=== PATIENT | female | born 1990 | race Caucasian/White ===

== ENCOUNTER 2024-06-13 13:29 | Outpatient (CLI) | payer BC, SELFPAY | END 2024-06-13 13:30 | disposition home or self-care (01) | PROVIDERS: Visit Provider Physician Assistant | DX: Z34.83 Encounter for supervision of other normal pregnancy, third trimester (principal); Z67.10 Type A blood, Rh positive | CPT/HCPCS: 86592; 86850; 86900; 86901 ==

== ENCOUNTER 2024-06-16 10:01 | Outpatient (CLI) | payer BC, SELFPAY ==
--- NOTE | 2024-06-16 10:45 | CRLHL7_ITS ---
For Patients: As a result of the Century Cures Act, medical imaging exams and procedure reports are released immediately into your electronic medical record. You may view this report before your referring provider. If you have questions, please contact your health care provider. OB ULTRASOUND FOLLOWUP LIMITED, 06/16/2024 CLINICAL HISTORY: GDMA2. COMPARISON: None; outside facility. TECHNIQUE: Real time boswell scale imaging of the fetus was performed transabdominally. FINDINGS: Gestation: Single. VELIA by LMP/US: 09/03/2024. GA: 28 weeks 5 days. CERVIX: Not visualized. POSITIONING: Breech. AMNIOTIC FLUID: 5.0 cm SDP. PLACENTA: Technique: TA. Placenta Position: Posterior. DOPPLERS: Heart Rate: 152 bpm. BIOMETRY: BPD: 7.0 cm, 28 weeks 2 days. 24.3% HC: 27.5 cm, 30 weeks 0 days. 56.5% AC: 26.7 cm, 30 weeks 6 days. 93.6% FL: 5.6 cm, 29 weeks 3 days. 54.2% FL/AC Ratio: 20.87% HC/AC Ratio: 1.03. EFW: 1509 grams, 3 lb 5 oz. Age by this US: 29 weeks 5 days. VELIA by this US: 08/27/2024. Percentile by VELIA: 85.6% IMPRESSION: 1. Sonographic gestational age 29 weeks 5 days and sonographic due date 08/27/2024. Sonographic age one week ahead of the clinical age. 2. Estimated weight 86th percentile. Abdominal circumference 94th percentile. Darion Pritchard M.D. Diagnostic Radiologist [email or web address] Transcribed: 12:20 pm DW/Dictated by: Darion Pritchard MD @ 06/16/2024 11:44:00 AM (Electronically Signed)
== END 2024-06-16 10:02 | disposition home or self-care (01) ==
LOC: US 10:02
PROVIDERS: Visit Provider Physician Assistant
DX: O24.419 Gestational diabetes mellitus in pregnancy, unspecified control (principal); Z3A.29 29 weeks gestation of pregnancy
CPT/HCPCS: 76816

== ENCOUNTER 2024-07-11 12:04 | Outpatient (CLI) | payer BC, SELFPAY ==
--- NOTE | 2024-07-11 12:15 | CRLHL7_ITS ---
For Patients: As a result of the Century Cures Act, medical imaging exams and procedure reports are released immediately into your electronic medical record. You may view this report before your referring provider. If you have questions, please contact your health care provider. OB ULTRASOUND VELIA by US: 09/03/2024. GA: 32 w, 2 d. Single. Comparison: 06/16/2024. INDICATION: GDM. TECHNIQUE: Real time grayscale imaging of the fetus was performed. Transabdominal. CERVIX: Not visualized. POSITIONING: Breech. AMNIOTIC FLUID: 5.7 cm. SDP (N: greater than 2 x 1 cm) BIOPHYSICAL PROFILE: 2: Gross body movements 2: tone 2: Respiratory activity 2: Amniotic fluid SDP (N: greater than 2 x 1 cm) 11/03: Total score PLACENTA: Technique: Transabdominal. PLACENTA POSITION: Posterior. DOPPLER: heart rate: 154 bpm. BIOMETRY: BPD: 7.9 cm. 31 w, 4 d, 20 percent. HC: 29.7 cm. 32 w, 6 d, 27 percent. AC: 30.1 cm. 34 w, 0 d, 91 percent. FL: 6.6 cm. 33 w, 6 d, 79 percent. FL/AC ratio: 21.86 percent. HC/AC ratio: 0.99. EFW: 2233 g. Weight: 4 lbs, 15 oz. age by this US: 33 w, 1 d. VELIA by this US: 08/28/2024. Percentile by VELIA: 81st percent. IMPRESSION: 1. Sonographic gestational age 33 weeks 1 day and sonographic due date 08/28/2024. Sonographic age 6 days ahead of the clinical age. 2. Estimated weight 81st percentile. Abdominal circumference 91st percentile. 3. Normal biophysical profile score 11/03. Darion Pritchard M.D. Diagnostic Radiologist [email or web address] [email or web address]/[email or web address] vaz/Dictated by: Darion Pritchard MD @ 07/11/2024 3:23:00 PM (Electronically Signed)
== END 2024-07-11 12:05 | disposition home or self-care (01) ==
LOC: US 12:04
PROVIDERS: Visit Provider Physician Assistant
DX: O24.419 Gestational diabetes mellitus in pregnancy, unspecified control (principal); O36.63X0 Maternal care for excessive fetal growth, third trimester, not applicable or unspecified; Z3A.32 32 weeks gestation of pregnancy
CPT/HCPCS: 76816; 76819

== ENCOUNTER 2024-07-18 11:51 | Outpatient (CLI) | payer BC, SELFPAY ==
--- NOTE | 2024-07-18 12:15 | CRLHL7_ITS ---
For Patients: As a result of the Cures Act, medical imaging exams and procedure reports are released immediately into your electronic medical record. You may view this report before your referring provider. If you have questions, please contact your health care provider. CORRECTION: The heart rate is 142 bpm. CRL/bhm OB ULTRASOUND BIOPHYSICAL PROFILE, 07/18/2024 CLINICAL HISTORY: Gestational diabetes mellitus. COMPARISON: 07/11/2024, 06/16/2024. TECHNIQUE: Real time boswell-scale imaging of the fetus was performed transabdominally. FINDINGS: Gestation: Single. VELIA by LMP/US: 09/03/2024. GA: 33 weeks 2 days. CERVIX: Not visualized. POSITIONING: Breech. AMNIOTIC FLUID: 6.0 cm, SDP. BIOPHYSICAL PROFILE: Gross body movements: 2 Tone: 2 Respiratory Activity: 2 Amniotic Fluid; 2 Total Score: 8/8 PLACENTA: Technique: TA. Placenta position: Fundal. DOPPLERS: Heart Rate: 42 bpm. IMPRESSION: Normal biophysical profile score of 8/8. Darion Pritchard M.D. Diagnostic Radiologist [email or web address] Transcribed: 1:00 pm DW/Dictated by: Darion Pritchard MD @ 07/18/2024 12:23:00 PM Signed by: Darion Pritchard @ 07/18/2024 1:27:49 PM (Electronic Signature) (Electronically Signed)
== END 2024-07-18 11:52 | disposition home or self-care (01) ==
LOC: US 11:51
PROVIDERS: Visit Provider Physician Assistant
DX: O24.419 Gestational diabetes mellitus in pregnancy, unspecified control (principal); Z3A.33 33 weeks gestation of pregnancy
CPT/HCPCS: 76819

== ENCOUNTER 2024-07-25 08:53 | Outpatient (CLI) | payer BC, SELFPAY ==
--- NOTE | 2024-07-25 09:15 | CRLHL7_ITS ---
For Patients: As a result of the Century Cures Act, medical imaging exams and procedure reports are released immediately into your electronic medical record. You may view this report before your referring provider. If you have questions, please contact your health care provider. INDICATION: GDMA2 COMPARISON: 07/19/2024 TECHNIQUE: Real time boswell scale imaging of the fetus was performed. Without non-stress testing. FINDINGS: Sonographic imaging demonstrates a single living intrauterine gestation. Fetus demonstrates a regular cardiac rate of 147 beats per minute. Fetus has a sera breech position. The fetus was active and demonstrated normal breathing movements. There was normal flexion and extension of the trunk and extremities. Amniotic fluid single deepest pocket 11.7 cm. GAVINO 30.2 cm. IMPRESSION: Normal biophysical profile score of 8 out of 8. SDP 11.7 cm. GAVINO 30.2 cm. Dictated by Darion Pritchard MD @ 07/25/2024 1:12:49 PM (Electronically Signed)
== END 2024-07-25 08:54 | disposition home or self-care (01) ==
LOC: US 08:54
PROVIDERS: Visit Provider Physician Assistant
DX: O24.419 Gestational diabetes mellitus in pregnancy, unspecified control (principal)
CPT/HCPCS: 76819

== ENCOUNTER 2024-08-01 08:49 | Outpatient (CLI) | payer MEDICAID, SELFPAY ==
--- NOTE | 2024-08-01 09:15 | CRLHL7_ITS ---
For Patients: As a result of the Century Cures Act, medical imaging exams and procedure reports are released immediately into your electronic medical record. You may view this report before your referring provider. If you have questions, please contact your health care provider. OB ULTRASOUND BIOPHYSICAL PROFILE VELIA by US: 09/03/2024. GA: 35 w, 2 d. INDICATION: GDM. TECHNIQUE: Real time bosewll scale imaging of the fetus was performed. Transabdominal imaging performed. CERVIX: Not visualized. POSITIONING: Breech. AMNIOTIC FLUID: 27.8 cm. 10.1 cm on SDP (N: greater than 2 x 1 cm). BIOPHYSICAL PROFILE: Gross body movements: 2. tone: 2. Respiratory activity: 2. Amniotic fluid: 2. (SDP N: greater than 2 x 1 cm) Total score: 8. PLACENTA: Technique: Transabdominal. PLACENTA POSITION: Posterior. DOPPLER: heart rate: 137 bpm. IMPRESSION: 1. 8/8 biophysical profile score. 2. Amniotic fluid single deepest pocket 10.1 cm. GAVINO 27.8 cm. Darion Pritchard M.D. Diagnostic Radiologist [email or web address] HONG/Dictated by: Darion Pritchard MD @ 08/01/2024 8:05:00 PM HONG/Dictated by: Darion Pritchard MD @ 08/01/2024 8:05:00 PM (Electronically Signed)
== END 2024-08-01 08:50 | disposition home or self-care (01) ==
LOC: US 08:50
PROVIDERS: Visit Provider Physician Assistant
DX: O24.419 Gestational diabetes mellitus in pregnancy, unspecified control (principal); Z3A.35 35 weeks gestation of pregnancy
CPT/HCPCS: 76819; 87081; 87653

== ENCOUNTER 2024-08-01 10:30 | Outpatient (CLI) | payer MEDICAID, SELFPAY | END 2024-08-01 10:31 | disposition home or self-care (01) | LOC: NFLDREF 08-04 01:48 | PROVIDERS: Visit Provider Obstetrics & Gynecology | DX: Z34.83 Encounter for supervision of other normal pregnancy, third trimester (principal) | CPT/HCPCS: 87081; 87653 ==

== ENCOUNTER 2024-08-05 14:50 | Outpatient (CLI) | payer MEDICAID, SELFPAY ==
[2024-08-05 14:57] VITALS: PULSE 111; O2SAT 99
[2024-08-05 14:58] VITALS: BP 138/64; PULSE 106
[2024-08-05 15:16] VITALS: RESP 18; TEMP 36.6
[2024-08-05 15:34] LABS: Amnisure Rom* Negative
[2024-08-05 15:41] LABS: Clue Cells >20% Clue Cells Seen (None Seen); Trichomonas No Trichomonas Seen (None Seen); Yeast Yeast Seen (None Seen)
[2024-08-05 15:55] LABS: Appearance Urine Slightly Cloudy (Clear); Bilirubin Urine Negative (Negative); Color Urine Yellow (Yellow); Glucose Urine 2+ (Negative); Ketones Urine Trace (Negative)
[2024-08-05 15:56] LABS: Blood Urine 1+ (Negative)
[2024-08-05 15:57] LABS: Leukocyte Esterase Urine Trace (Negative); Nitrite Urine Negative (Negative); Protein Urine Trace (Negative); Urobilinogen Urine 0.2 (0.2-1.0); pH Urine 6.5 (5.0-8.5)
[2024-08-05 15:58] LABS: Bacteria Urine Few; Squamous Epithelial Cell Urine Few (None-Few)
--- NOTE | 2024-08-05 16:13 | PC.OBNST ---
NST Note NST Note Start: 08/05/24 14:53 Freq: ONCE Status: Active Protocol: Document 08/05/24 14:53 [facility] (Rec: 08/05/24 16:13 [facility] No Response) NST Note 4 Para (# of births) 2 EDC 09/03/24 Gestational Age In Weeks & Days 35 Weeks & 6 Days High Risk Factors Diabetes - Preexisting Type I Insulin Patient Presented with Complaint(s) of Contractions/cramping,Leaking fluid Other Complaints amnisure negative, BV and yeast positive Reactive Yes Appropriate for Gestational Age Yes RN Case RN Date 08/05/24 Reactive Yes Appropriate for Gestational Age Yes RN Reiley RN Date 08/05/24 OB NST charge Yes Complete NST Note via Write Note Yes The provider's electronic signature indicates the NST is reactive/appropriate for gestational age. *Note to provider: If an addendum is required, open the patient's chart and click on the note under the Nurse/Allied Health tab.
== END 2024-08-05 16:15 | disposition home or self-care (01) ==
LOC: OB OUT 14:51 → OB 14:52
PROVIDERS: Visit Provider Obstetrics & Gynecology
DX: O24.013 Pre-existing type 1 diabetes mellitus, in pregnancy, third trimester (principal); O47.03 False labor before 37 completed weeks of gestation, third trimester; O23.593 Infection of other part of genital tract in pregnancy, third trimester; B96.89 Other specified bacterial agents as the cause of diseases classified elsewhere; Z3A.35 35 weeks gestation of pregnancy
CPT/HCPCS: 59025; 81001; 81003; 84112; 87086; 87210; G0463

== ENCOUNTER 2024-08-08 09:54 | Outpatient (CLI) | payer MEDICAID, SELFPAY ==
--- NOTE | 2024-08-08 10:00 | CRLHL7_ITS ---
For Patients: As a result of the Century Cures Act, medical imaging exams and procedure reports are released immediately into your electronic medical record. You may view this report before your referring provider. If you have questions, please contact your health care provider. OB ULTRASOUND VELIA by LMP OR US: 09/03/2024. GA: 36 w, 2 d. Single. Comparison: 08/01/2024, 07/25/2024, 07/18/2024, 07/11/2024. INDICATION: GDM. TECHNIQUE: Real time boswell scale imaging of the fetus was performed. Transabdominal. CERVIX: Not visualized. POSITIONING: Breech. AMNIOTIC FLUID: 28.7 cm. 9.6 cm SDP (N: greater than 2 x 1 cm) BIOPHYSICAL PROFILE: Total score: 2. Gross body movements: 2. tone: 0. Respiratory activity: 2. Amniotic fluid: 6. (SDP N: greater than 2 x 1 cm) PLACENTA: Technique: Transabdominal. PLACENTA POSITION: Posterior. DOPPLER: heart rate: 144 bpm. BIOMETRY: BPD: 8.9 cm. 36 w, 1 d, 56 percent. HC: 33.9 cm. 38 w, 6 d, 82 percent. AC: 37.7 cm. 41 w, 4 d, >97 percent. FL: 7.2 cm. 37 w, 0 d, 67 percent. FL/AC ratio: 19.22 percent. HC/AC ratio: 0.90. EFW: 3851 g. Weight: 8 lbs, 8 oz. age by this US: 38 w, 3 d. VELIA by this US: 08/19/2024. Percentile by VELIA: >97 percent. 1. IMPRESSION: Sonographic gestational age 38 weeks 3 days and sonographic due date 08/19/2024. Sonographic age is 15 days ahead of the clinical age. 2. Estimated weight greater than 97th percentile. Abdominal circumference greater than 97th percentile. 3. Biophysical profile 09/03. Absent respiratory activity. 4. Amniotic fluid single deepest pocket 9.6 cm. GAVINO 28.7 cm. Darion Pritchard M.D. Diagnostic Radiologist [email or web address] [email or web address]/[email or web address] JR/Dictated by: Darion Pritchard MD @ 08/08/2024 10:56:00 AM (Electronically Signed)
== END 2024-08-08 09:55 | disposition home or self-care (01) ==
LOC: US 09:54
PROVIDERS: Visit Provider Physician Assistant
DX: O24.419 Gestational diabetes mellitus in pregnancy, unspecified control (principal); O36.63X0 Maternal care for excessive fetal growth, third trimester, not applicable or unspecified; Z3A.36 36 weeks gestation of pregnancy
CPT/HCPCS: 76816; 76819

== ENCOUNTER 2024-08-11 11:17 | Outpatient (CLI) | payer MEDICAID, SELFPAY ==
[2024-08-11 11:37] VITALS: BP 123/69; PULSE 88
[2024-08-11 12:07] VITALS: PULSE 84; O2SAT 99
[2024-08-11] MEDS: LACTATED RINGERS 500 ML 500 ML 1000 ML IV (13:23)
--- NOTE | 2024-08-13 15:26 | PC.OBNST ---
NST Note NST Note Start: 08/11/24 11:27 Freq: ONCE Status: Discharge Protocol: Document 08/11/24 14:00 [facility] (Rec: 08/13/24 15:26 [facility] [id number]) NST Note 4 Para (# of births) 2 EDC 09/03/24 Gestational Age In Weeks & Days 37 Weeks & 0 Days High Risk Factors Diabetes - Gestational Insulin Patient Presented with Complaint(s) of Contractions/cramping,Other Other Complaints Extended NST monitoring from clinic; rule out labor Reactive Yes Appropriate for Gestational Age Yes MONSTER Palacios, RN Date 08/11/24 Reactive Yes Appropriate for Gestational Age Yes MONSTER Chowdhury, MONSTER Date 08/11/24 OB NST charge Yes Complete NST Note via Write Note Yes The provider's electronic signature indicates the NST is reactive/appropriate for gestational age. *Note to provider: If an addendum is required, open the patient's chart and click on the note under the Nurse/Allied Health tab.
== END 2024-08-11 14:20 | disposition home or self-care (01) ==
LOC: OB OUT 11:18 → OB 11:20
PROVIDERS: Visit Provider Obstetrics & Gynecology
DX: O24.419 Gestational diabetes mellitus in pregnancy, unspecified control (principal); O47.1 False labor at or after 37 completed weeks of gestation; Z3A.37 37 weeks gestation of pregnancy
CPT/HCPCS: 59025; G0463; J7120

== ENCOUNTER 2024-08-14 05:40 | Inpatient (IN) | payer MEDICAID, SELFPAY ==
[2024-08-14] VITALS (28 sets, daily range): BP systolic 96–122; BP diastolic 57–77; PULSE 61–101; RESP 16–20; TEMP 36.2–36.7; O2SAT 96–100; BMI 40.8
[2024-08-14] MEDS: LACTATED RINGERS 1000 ML 1,000 ML 1100 ML IV (06:34)
[2024-08-14 06:40] LABS: Basophils Absolute Auto 0.02 K/uL (0.00-0.30); Basophils Percent Auto 0.2 % (0.0-3.0); Eosinophils Absolute Auto 0.04 K/uL (0.00-0.50); Eosinophils Percent Auto 0.4 % (0.0-7.0); Hematocrit 32.8 % (33.0-51.0); Hemoglobin* 10.6 gm/dL (12.0-16.0); Immature Granulocytes Abs Auto 0.02 K/uL (0.00-0.30); Immature Granulocytes Pct Auto 0.2 %; Lymphocytes Percent Auto 17.2 % (20-44); Mean Corpuscular HGB Conc 32 gm/dL (32-36); Mean Corpuscular Hemoglobin 27 pg (26-34); Mean Corpuscular Volume 83 fL (80-100); Monocytes Percent Auto 5.2 % (0.0-11.0); Neutrophils Percent Auto 76.8 % (42.0-72.0); Platelet Count* 194 K/uL (140-440); RDW Coefficient of Variation % 13.8 % (11.5-15.5); Red Blood Count 3.96 m/uL (4.00-5.20); White Blood Count* 9.76 K/uL (4.50-11.00)
[2024-08-14 06:47] LABS: Slide Review Reflex No
[2024-08-14] MEDS: CEFAZOLIN 1 GM inj 3 GM IVP (07:25)
--- NOTE | 2024-08-14 08:59 | P.ANES_ITS ---
Anesthesia Charges Start Date/Time Anesthesia Start Date: 08/14/24 Anesthesia Start Time: 07:21 Stop Date/Time Anesthesia Stop Date: 08/14/24 Anesthesia Stop Time: 08:56 Coding CPT Codes CPT Codes: ANESTH CS DELIVERY - 42087 ([id number]) P3 - PATIENT W/SEVERE SYS DISEASE, QK - MATERIAL HAULER 2-4 CNCRNT ANES PROC, QX - OLDER WORKER SPECIALIST SVC W/ MD MED DIRECTION
--- NOTE | 2024-08-14 08:59 | P.NB_ITS ---
Nerve Block Nerve Block Time Seen by Provider: 08:45 Date Seen: 08/14/24 Type of block requested by surgeon for post-operative analgesia: TAP Side: bilateral Time out performed: Yes Verification of patient name: Yes Verification of date of : Yes Site marking: site marked Name of person performing procedure: Abhi Continuous monitoring Was continuous monitoring of O2 sat, B/P, rn cardiac rehab, recorded every 15 minutes?: Yes Procedure Checklist: sterile prep, needles and gloves Ultrasound guided. Images saved: Yes Medications given in 5ml increments after negative aspiration: Marcaine %: 0.25 mL: 30 Needle gauge: 20 and Exparel mL: 10 Patient tolerated procedure well: Yes Additional comments: Needle noted between internal oblique and transversus abdominus. Local spread visualized Block Charges Block Charge (with Pro Fee): TAP Bilateral Use of Ultrasound Machine for Block: Yes- US Guidance/pain block
--- NOTE | 2024-08-14 08:59 | W.ANESCHARGE ---
Anesthesia Charges Start Date/Time Anesthesia Start Date: 08/14/24 Anesthesia Start Time: 07:21 Stop Date/Time Anesthesia Stop Date: 08/14/24 Anesthesia Stop Time: 08:56 Coding CPT Codes CPT Codes: ANESTH CS DELIVERY - 64635 ([id number]) P3 - PATIENT W/SEVERE SYS DISEASE, QK - COACH DRIVER 2-4 CNCRNT ANES PROC, QX - INSTRUMENT OPERATOR SVC W/ MD MED DIRECTION
--- NOTE | 2024-08-14 09:02 | P.ANES_ITS ---
Anesthesia Charges Start Date/Time Anesthesia Start Date: 08/14/24 Anesthesia Start Time: 07:21 Stop Date/Time Anesthesia Stop Date: 08/14/24 Anesthesia Stop Time: 08:56 Coding CPT Codes CPT Codes: ANESTH CS DELIVERY - 53127 ([id number]) P3 - PATIENT W/SEVERE SYS DISEASE, QK - DISBURSEMENT CLERK 2-4 CNCRNT ANES PROC, QX - MORTGAGE SERVICING SPECIALIST SVC W/ MD MED DIRECTION
--- NOTE | 2024-08-14 09:02 | W.ANESCHARGE ---
Anesthesia Charges Start Date/Time Anesthesia Start Date: 08/14/24 Anesthesia Start Time: 07:21 Stop Date/Time Anesthesia Stop Date: 08/14/24 Anesthesia Stop Time: 08:56 Coding CPT Codes CPT Codes: ANESTH CS DELIVERY - 79214 ([id number]) P3 - PATIENT W/SEVERE SYS DISEASE, QK - IT APPLICATION DEVELOPMENT MANAGER 2-4 CNCRNT ANES PROC, QX - SET UP MECHANIC COATING MACHINES SVC W/ MD MED DIRECTION
--- NOTE | 2024-08-14 09:14 | P.OBPRC_ITS ---
Procedure Date of procedure: 08/14/24 Pre-op diagnosis: 1. 37 1/7 weeks gestation. 2. Uncontrolled GDMA2. 3. Breech presentation. 4. macrosomia. 5. Polyhydramnios. 6. Undesired fertility. Post-op diagnosis: same Procedure Done: Global Will [facility] bill your pro fee for this procedure?: Yes Blood Loss Measurement Type: QBL (265 mL) Bakri Used: No IV fluids (mL): 2,000 Urine Output (mL): 100 Surgeon: Sangeetha Young MD Project Management Consultant: Rhonda Jolly Anesthesia Type: Spinal and TAP Block Findings: Live-born female , sera breech presentation. Weight 10 lb 8 oz. Apgars 5, 8, and 8, at 1, 5, and 10 minutes respectively. Polyhydramnios, with 2.5 L of clear amniotic fluid. Normal-appearing uterus, ovaries, and fallopian tubes. Procedure Name: Primary low transverse section with bilateral salpingectomies. Procedure Description: After obtaining informed consent, the patient was taken to the operating room where spinal anesthesia was obtained and found to be adequate. She was prepared and draped in the normal sterile fashion in the dorsal supine position with a leftward tilt. A Pfannenstiel skin incision was made with a scalpel. This incision was carried down to the underlying layer of fascia. The fascia was incised in the midline and the incision extended laterally. The mitchell perior and inferior aspects of the fascial incision were grasped with Dary clamps, elevated and the underlying rectus muscles dissected off sharply and with electrocautery. The rectus muscles were then in the midline. The Faustino O retractor was then placed into the incision. The lower uterine segment was then incised in a transverse fashion with the scalpel. Upon entry into the uterus, copious clear amniotic fluid was noted. The uterine incision was extended laterally with blunt finger fractionation. The infant's breech was delivered atraumatically, back was rotated upwards, the legs were delivered followed by the remainder of the torso, and then the arms. The head was delivered while maintaining neck flexion. The nose and mouth were suctioned with the bulb suction. The cord was doubly clamped and cut after 30 second delay, and the infant was handed off the field to the pediatric acute care unit nurse for evaluation. The placenta was delivered spontaneously with umbilical cord traction and fundal massage. Pitocin was administered intravenously as well as tranexamic acid 1000 mg to help with uterine tone. The uterus was cleared of all clots and debris. The uterine incision was reapproximated in a running locking fashion with a 0 chromic suture. A 2nd layer of the same suture was used to imbricate in horizontal fashion. One additional figure of X suture of 0 chromic was needed in the midline for hemostasis. The uterus was then exteriorized. Attention was turned to the left fallopian tube, which was followed to its fimbrial end and elevated using Evelia clamps. The hand-held LigaSure device was then used to dissect the tube from its cornual, broad ligament, and ovarian attachments. There was a little bit of bleeding noted at the ovary where the fimbrial attachments had been. This was controlled with electrocautery. Attention was turned to the right fallopian tube, which was also followed to its fimbrial end and elevated with Evelia clamps. The hand-held LigaSure device was used to dissect this tube from the cornual, broad ligament and ovarian attachments. Excellent hemostasis was observed. As a precautionary measure, Candi was placed over the raw tissue surfaces. All instruments and retractors were removed. The anterior peritoneum was reapproximated in a running fashion with a 3-0 Vicryl suture. The subfascial tissues were carefully inspected and hemostasis assured. The fascia was reapproximated in a running fashion with a looped 0 Maxon suture. The subcutaneous tissues were copiously irrigated. Hemostasis was assured. The subcutaneous fat layer was reapproximated with interrupted sutures of 3-0 plain gut. The skin was closed in a subcuticular fashion with 4-0 Vicryl. A silver Mepilex dressing was applied over the incision. A tap block was administered by anesthesia. The patient tolerated the procedure well. Sponge, lap, needle, and instrument counts were reported as correct x2. The patient was taken to the recovery room, awake, and in stable condition. She did receive 3 grams of IV Ancef preoperatively. Complications: None. Pathology: specimen obtained, sent to pathology (Placenta) Surgery Debrief Performed: Yes Condition: stable Disposition: floor
--- NOTE | 2024-08-14 09:14 | W.PM.H&PU ---
History & Physical Update History & Physical Update H&P Reviewed and patient assessed: No changes noted H&P Updates: Blood sugar 119 this morning.
[2024-08-14] MEDS: diphenhydrAMINE 50 MG/ML inj 12.5 MG IVP ×3 (09:35→20:23)
[2024-08-14] MEDS: KETOROLAC 30 MG/ML inj IVP ×2 (14:29→20:22)
[2024-08-15 00:32] VITALS: BP 99/65; PULSE 86; RESP 16; TEMP 36.6; O2SAT 97
[2024-08-15] MEDS: KETOROLAC 30 MG/ML inj IVP ×3 (02:20→14:26)
[2024-08-15 05:34] VITALS: BP 106/67; PULSE 96; RESP 16; TEMP 36.4; O2SAT 97
[2024-08-15] MEDS: ACETAMINOPHEN 500 MG TABLET 1000 MG PO ×3 (05:40→18:20)
[2024-08-15 06:16] LABS: Hemoglobin* 8.9 gm/dL (12.0-16.0)
--- NOTE | 2024-08-15 08:23 | P.OBPN_ITS ---
OB - PN:Subj Subjective Date Seen: 08/15/24 Narrative: Rimma is a 33 year old who was admitted for scheduled for sera breech and severe polyhydramnios. It is noted that she has poor control of GDMA2. Baby was transferred to [facility] for higher medical needs, but agars were . The patient feels well.? The pain is well controlled with current medications.? She has no new complaints.? Urinary output is adequate and she is voiding without difficulty.? Has a good appetite, is tolerating a general diet, is passing flatus, and has not had a bowel movement.? Has scant amount of rubra lochia.? She is ambulating well. She is pumping and reports it is going well.? OB - PN: Obj Exam Physical Exam: Vital signs: Temp Pulse Resp BP Pulse Ox O2 Del Method 97.6 F 96 16 106/67 97 Room Air 08/15/24 05:34 08/15/24 05:34 08/15/24 05:34 08/15/24 05:34 08/15/24 05:34 08/15/24 05:34 Narrative: GENERAL APPEARANCE:? normal affect, alert, no distress MOOD:? appropriate CHEST:? clear to auscultation HEART:? regular rate and rhythm ABDOMEN:? soft, non-tender the uterine fundus is At Umbilicus, Midline and is appropriate for the stage of recovery. EXTREMITIES:? normal and minimal edema Incision: Silvadene dressing intact with no surrounding erythema, abnormal induration or discharge. No drainage on dressing OB - PN: Obj Data Labs Labs: Laboratory Results - last 24 hr 08/15/24 05:59 Hgb 8.9 L OB - PN: A/P Delivery Assessment and Plan (1) care and examination of lactating mother: Status: Acute (2) Status post delivery: Problem details: Breech, severe polyhydramnios Status: Acute (3) GDM, class A2: Status: Acute Plan Comments: PP day #1 Routine care Consider 2 hour GCT in the morning if NPO after MN tonight. May see as desired Iron PO ordered for every other day and to continue after discharge for at least 2 weeks Anticipate discharge possibly 08/16/2024.
[2024-08-15 08:32] VITALS: BP 122/82; PULSE 103; RESP 16; TEMP 36.6; O2SAT 98
[2024-08-15] MEDS: FERROUS SULFATE 325 MG TABLET PO (08:35)
[2024-08-15] MEDS: DOCUSATE SODIUM 100 MG CAPSULE PO (08:35)
[2024-08-15] MEDS: OXYCODONE 5 MG TABLET PO (17:14)
[2024-08-15 17:15] VITALS: BP 117/76; PULSE 104; RESP 16; TEMP 36.6; O2SAT 97
[2024-08-15 19:40] VITALS: BP 111/72; PULSE 104; RESP 16; TEMP 36.4; O2SAT 99
[2024-08-15] MEDS: IBUPROFEN 600 MG TABLET PO (21:39)
[2024-08-16] MEDS: ACETAMINOPHEN 500 MG TABLET 1000 MG PO (00:34)
[2024-08-16] MEDS: OXYCODONE 5 MG TABLET PO (00:34)
[2024-08-16] MEDS: IBUPROFEN 600 MG TABLET PO ×2 (04:00→08:06)
[2024-08-16 04:02] VITALS: BP 108/77; PULSE 100; RESP 16; TEMP 36.6; O2SAT 99
[2024-08-16 06:24] LABS: Glucose Fasting 100 mg/dl (70-95)
--- NOTE | 2024-08-16 07:51 | P.DS_ITS ---
DS: Providers Provider Date Seen: 08/16/24 Date of admission: 08/14/24 05:40 Primary care physician: Not a Local Provider Admitting Clinician: Sangeetha Young MD Attending Physician on discharge: Dario Hanson CNM Date of Discharge: 08/16/24 DS: Diagnosis Discharge Diagnosis (1) Status post delivery: Status: Acute Problem details: Breech, severe polyhydramnios (2) care and examination of lactating mother: Status: Acute (3) GDM, class A2: Status: Acute (4) Obesity: Status: Acute Exam Narrative: Exam Narrative: VSS. ?Afebrile GENERAL APPEARANCE: ?normal affect, alert, no distress MOOD: ?appropriate HEENT: normocephalic, neck supple, full ROM CHEST: ?Symmetrical chest wall movement. ?Normal respiratory effort. ?Clear to auscultation HEART: ?regular rate and rhythm ABDOMEN: ?soft, non-tender. Uterine fundus is firm, at Umbilicus, Midline and is appropriate for the stage of recovery. ?Bowel sounds present. EXTREMITIES: ?normal and no edema SKIN: warm, dry. ?Silver infused Dressing on, clean/dry/intact ?No signs of infection noted. Const: Vital Signs, click to edit/add: Vital Signs - 24 hr 08/15/24 08:32 08/15/24 08:32 08/15/24 17:15 Temperature 97.9 F 97.9 F Pulse Rate [Pulse Oximeter] 103 H 104 H Respiratory Rate 16 16 16 Blood Pressure [Ri ght Arm] 122/82 117/76 Pulse Oximetry 98 97 Oxygen Delivery Me thod Room Air Room Air 08/15/24 19:40 08/16/24 04:02 Temperature 97.6 F 97.9 F Pulse Rate [Pulse Oximeter] 104 H 100 Respiratory Rate 16 16 Blood Pressure [Ri ght Arm] 111/72 108/77 Pulse Oximetry 99 99 Oxygen Delivery Me thod Room Air Room Air Documenting provider has reviewed patient's vital signs: yes OB - DS: Summary Hospital Course Hospital Course: Rimma is a 33 y.o. who was admitted to [facility] for a primary C/S for breech. ?She had an uncomplicated .?The patient feels well. ?The pain is well controlled with current medications. ?She has no new complaints. ?She is pumping for her infant who is in the NICU at [facility] and reports things are going well.? the patient has done well.? Vitals have been stable.? She has remained afebrile.? Has a good appetite, is tolerating a general diet. ?She is voiding without difficulty.? She is passing gas and has not had a bowel movement.? She is ambulating and denies any dizziness.? Has Small amount of rubra lochia. ?She had a tubal ligation for prevention. She strongly desires discharge today so she can go be with her . She is midway through her 2 hour glucose tolerance test so discharge after this is completed. Peripartum Data delivery method: Primary C/S; Non-Labored Procedures: Procedures Operation Date: 08/14/24 07:15 Actual Procedure Side Surgeon p section with Bilateral Salpingectomy Sangeetha Young MD complications: none [place] Infant Gender: Female Infant Discharge Plan: Home Status at Discharge Functional status at discharge: independent ambulation Overall status at discharge: patient is progressing back to baseline Time Spent with Patient Time attestation: Total time spent providing and/or coordinating discharge services: Time spent: Less than 30 minutes Discharge Plan Discharge Disposition: Home, Self-Care Date of Admission: 08/14/24 05:40 Attending Provider on Discharge: Dario Hanson Primary Care Provider: Provider,Not a Local Condition: Stable Anticipated Discharge Date/Time: 08/16/24 09:00 Discharge Medications: New ferrous sulfate 325 mg (65 mg iron) Tablet 325 mg PO Q48H Qty: 30 0RF docusate sodium 100 mg Capsule 100 mg PO DAILY Qty: 90 0RF ibuprofen 600 mg Tablet 600 mg PO Q6H PRN (Reason: Pain) Qty: 60 0RF oxycodone 5 mg Tablet 5 - 10 mg PO Q4H PRN (Reason: Pain) Qty: 10 0RF Continued [id number] 3-fat com #1 27-1-300 mg capsule 1 cap PO DAILY acetaminophen [Tylenol Extra Strength] 500 mg tablet 500 mg PO Q6H PRN Discontinued insulin lispro 100 unit/mL solution 3 unit subcut TID Rx Instructions: to be taken less than 15 min before each full meal, if not eating a full meal do not use Humulin N NPH U-100 Insulin 100 unit/mL suspension 42 unit subcut BID Patient Comments: 42 units in the AM and 40 units at HS. Rx Instructions: at bedtime alcohol swabs [Alcohol Wipes] Pads, Medicated 1 pad topical QID Qty: 100 3RF Discharge Orders: Discharge Order (Routine); Ordered 08/16/24 Ordered By: Dario Hanson Patient Education: OB Over the Counter Medication Information, OB /Breast Feeding Additional Instructions: Discharge instructions were reviewed with the patient including signs and symptoms of infection and home going medications Lifting Restrictions: 20 pounds for 6 weeks No not submerge incision under water X 2 weeks? Nothing vaginally for 6 weeks: no tampons or intercourse Do not drive while taking narcotic pain medication(s) Off Work or School for 6 weeks 2-week visit: incision check, discuss infant feeding concerns, review control options and screen for anxiety/depression. 6-week visit for an annual exam. consultation services are available to all mothers and babies for the first year after delivery.? To make an appointment, please call [phone]. Activity Level: Activity as Tolerated Discharge Diet: Regular Follow Up Appointments: [facility] [Provider Group] Forms: [employer] Info Instructions
[2024-08-16] MEDS: DOCUSATE SODIUM 100 MG CAPSULE PO (08:07)
[2024-08-16 08:10] VITALS: BP 117/79; PULSE 96; RESP 16; TEMP 37; O2SAT 98
[2024-08-16 08:30] LABS: Glucose 2 Hour 207 mg/dl (70-155)
--- NOTE | 2024-09-07 15:43 | PC.NURSE ---
Late Entry: Patient called Center on 08/01/24 reporting that she was a patient at [facility] and was unsure if she could be presecribed Elliquis while /pumping. While RN educated that typically Elliquis may not be recommended, she needs to ask a provider for clarification on safety of prescribing. Call transferred to [facility] with direction to ask her [employer] team at [facility]. Patient verified understanding.
== END 2024-08-16 09:04 | disposition home or self-care (01) | DRG 540 ==
PROVIDERS: Admitting Provider Obstetrics & Gynecology; Visit Provider Obstetrics & Gynecology
PROC: 10D00Z1 Extraction of Products of Conception, Low, Open Approach (ICD-10-PCS; CPT 59514; principal; 2024-08-14 07:15)
DX: O32.1XX0 Maternal care for breech presentation, not applicable or unspecified (principal); O24.424 Gestational diabetes mellitus in childbirth, insulin controlled; O36.63X0 Maternal care for excessive fetal growth, third trimester, not applicable or unspecified; O40.3XX0 Polyhydramnios, third trimester, not applicable or unspecified; G89.18 Other acute postprocedural pain; O99.214 Obesity complicating childbirth; Z37.0 Single live birth; Z3A.37 37 weeks gestation of pregnancy
CPT/HCPCS: 01961; 36415; 64488; 76942; 82947; 82950; 82962; 85018; 85025; 86850; 86900; 86901; 88302; 88307; A4314; A9270; J0665; J0666; J0690; J1200; J1885; J2274; J2371; J2405; J2590; J7120